=== PATIENT | male | born 2005 | race Two or more races ===

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

== ENCOUNTER 2025-01-18 13:12 | Emergency (ER) | payer OTHER, MEDICAID ==
[~2025-01-18] VITALS: Ht 165.1 cm; Wt 65.0 kg
[~2025-01-18 13:12] MED LIST changes: +IBUP-2028 MT
[2025-01-18 13:32] VITALS: TEMP 36.9; O2SAT 98
[2025-01-18] MEDS ORDERED: LIDO-53 TP (13:57)
[2025-01-18] MEDS ORDERED: ACET-2708 MT (13:57)
[2025-01-18] MEDS: KETOROLAC 30MG/ML VIAL IM ONE (14:23)
[2025-01-18 14:24] VITALS: BP 107/60; PULSE 63; RESP 14; O2SAT 100
[2025-01-18] MEDS: LIDOCAINE 5% PATCH TOP SCH (14:24)
== END 2025-01-18 14:33 | disposition home or self-care (01) ==
LOC: ER 13:12
DX: M54.89 Other dorsalgia (principal); V89.2XXA Person injured in unspecified motor-vehicle accident, traffic, initial encounter; Y93.89 Activity, other specified; Y92.89 Other specified places as the place of occurrence of the external cause; Y99.8 Other external cause status
CPT/HCPCS: 99283; 96372; J1885